=== PATIENT | female | born 1990 | race Caucasian/White ===

== ENCOUNTER 2021-04-16 09:11 | Emergency (ER) | payer MEDICAID, OTHER ==
[~2021-04-16] VITALS: Ht 167.6 cm; Wt 82.1 kg
[2021-04-16 09:31] VITALS: BP 125/76
== END 2021-04-16 10:16 | disposition home or self-care (01) ==
LOC: ER 09:11
DX: M62.838 Other muscle spasm (principal); R11.2 Nausea with vomiting, unspecified; M25.512 Pain in left shoulder; V49.9XXA Car occupant (driver) (passenger) injured in unspecified traffic accident, initial encounter; Y93.89 Activity, other specified; Y92.89 Other specified places as the place of occurrence of the external cause; Y99.8 Other external cause status
CPT/HCPCS: 72040